=== PATIENT | female | born 1990 | race African-American/Black ===

== ENCOUNTER 2017-03-12 07:49 | Emergency (ER) | payer OTHER ==
[2017-03-12 08:00] VITALS: BP 128/81; PULSE 96; TEMP 98.6; BMI 29.9
--- NOTE | 2017-03-12 08:30 | PDOC ---
History of Present Illness - General Chief Complaint: Chest Pain Stated Complaint: PLEURITIC CHEST PAIN&COUGH Time Seen by Provider: 03/12/17 08:04 History Source: Patient Exam Limitations: No Limitations - History of Present Illness Initial Comments: 03/12/17 08:24 26 yr female with c/o pain to her chest under left breast wraps around to her flanks for 4-5 days comes and goes. Pain worse with movement and deep breath. Pt denies smoking, no control, no travel recently. Pt has no medical history or allergies. Pt has had a dry cough recently. 03/12/17 08:31 Timing/Duration: intermittent Severity: mild Past History - Past Medical History Allergies/Adverse Reactions: Allergies Allergy/AdvReac Type Severity Reaction Status Date / Time No Known Allergies Allergy Verified 03/12/17 07:51 Home Medications: Ambulatory Orders Naproxen [Naprosyn -] 500 mg PO BID #14 tablet 03/12/17 Asthma: Yes - Psycho/Social/Smoking Cessation Hx Suicidal Ideation: No Smoking History: Former smoker Have you smoked in the past 12 months: No Information on smoking cessation initiated: No Review of Systems - Review of Systems Able to Perform ROS?: Yes Is the patient limited Jamaican proficient: No Constitutional: No: Symptoms Reported HEENTM: Yes: Symptoms Reported, Throat Pain Respiratory: Yes: Symptoms reported, See HPI, Cough Cardiac (ROS): Yes: Symptoms Reported, See HPI, Chest Pain *Physical Exam - Vital Signs Last Vital Signs Temp Pulse Resp BP Pulse Ox 98.6 F 96 H 19 128/81 98 03/12/17 07:52 03/12/17 07:52 03/12/17 07:52 03/12/17 07:52 03/12/17 07:52 - Physical Exam General Appearance: Yes: Nourished, Appropriately Dressed HEENT: positive: EOMI, DANIEL, Normal ENT Inspection, TMs Normal, Pharynx Normal Neck: positive: Supple. negative: Tender Respiratory/Chest: positive: Lungs Clear, Normal Breath Sounds. negative: Chest Tender Cardiovascular: positive: Regular Rhythm, Regular Rate Gastrointestinal/Abdominal: positive: Normal Bowel Sounds, Soft Musculoskeletal: positive: Normal Inspection. negative: CVA Tenderness, CVA Tenderness (R), CVA Tenderness (L) Extremity: positive: Normal Capillary Refill, Normal Inspection, Normal Range of Motion Integumentary: positive: Normal Color, Dry, Warm Neurologic: positive: Fully Oriented, Alert, Normal Mood/Affect, Normal Response , Motor Strength 5/5 Heart Score/ECG Review - ECG Intrepretation Rhythm: Regular Rhythm - ECG Impressions Normal ECG: Yes Comment:: 03/12/17 08:34 signed by NSR Medical Decision Making - Medical Decision Making 03/12/17 08:35 cc: chest pain EKG done in triage NSR signed by no risk factors for PE Wells criteria is low risk will r/o UTI, CXR, motrin for pain 03/12/17 10:30 cxr is normal, US abdomen is normal, UA is normal will dc home with strict follow up with PMD take pain medication as prescribed *DC/Admit/Observation/Transfer Diagnosis at time of Disposition: Pleuritic chest pain - Discharge Dispostion Disposition: HOME Condition at time of disposition: Good - Prescriptions Prescriptions: Naproxen [Naprosyn -] 500 mg PO BID #14 tablet - Referrals Referrals: Debbie Khan MD [Primary Care Provider] - - Patient Instructions Additional Instructions: please make appointment to follow up with your doctor within the next 1-4 days take naprosyn as directed for pain drink at least 2 liters of water a day return to ER for any worsening pain - Post Discharge Activity Work/School Note: Back to Work
[2017-03-12] MEDS ORDERED: IBUPROFEN 400 MG TABLET (FP) PO ONE ×2 (08:47→08:49)
[2017-03-12] MEDS ORDERED: MAG HYDROX/AL HYDROX/SIMETH 30 ML UNIT-DOSE CUP PO ONE (09:03)
[2017-03-12] MEDS ORDERED: MAG HYDROX/AL HYDROX/SIMETH 30 ML UNIT-DOSE CUP ONE (09:07)
[2017-03-12 09:14] LABS: URINE APPEARANCE SLCLOUDY; URINE BILIRUBIN NEGATIVE (NEGATIVE); URINE BLOOD NEGATIVE (NEGATIVE); URINE COLOR YELLOW; URINE GLUCOSE (UA) NEGATIVE (NEGATIVE); URINE KETONE NEGATIVE (NEGATIVE); URINE LEUK ESTERASE NEGATIVE (NEGATIVE); URINE NITRITE NEGATIVE (NEGATIVE); URINE PROTEIN NEGATIVE (NEGATIVE); URINE UROBILINOGEN NEGATIVE E.U./dl (0.2-1.0)
--- NOTE | 2017-03-16 12:18 | EKG ---
Test Reason : Blood Pressure : / mmHG Vent. Rate : 079 BPM Atrial Rate : 079 BPM P-R Int : 198 ms QRS Dur : 074 ms QT Int : 352 ms P-R-T Axes : 036 053 032 degrees QTc Int : 403 ms NORMAL SINUS RHYTHM NORMAL ECG WHEN COMPARED WITH ECG OF 06-AUG-2009 13:16, NO SIGNIFICANT CHANGE WAS FOUND Confirmed by ROCÍO BRIAN MD ([id number]) on 03/16/2017 12:18:03 PM Referred By: Confirmed By:ROCÍO BRIAN MD
== END 2017-03-12 10:49 | disposition home or self-care (01) ==
LOC: JERFT 07:49
DX: R07.81 Pleurodynia (principal); J45.909 Unspecified asthma, uncomplicated; Z87.891 Personal history of nicotine dependence
CPT/HCPCS: 71020-TC; 76705-TC; 81003; 84703; 87070; 87086; 87430; 93005; 93010; 99281-25

== ENCOUNTER 2017-08-17 10:04 | Emergency (ER) | payer BC, OTHER ==
[2017-08-17 10:30] VITALS: BP 135/91; PULSE 90; TEMP 98.6; BMI 29.9
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
[2017-08-17] MEDS ORDERED: KETOROLAC TROMETHAMINE 60 MG/2 ML VIAL IM ONE (12:08)
[2017-08-17] MEDS ORDERED: BACITRACIN 15 GM TUBE TOPICAL OINTMENT TP ONE (12:10)
[2017-08-17] MEDS ORDERED: DIPHTH,PERTUSS(ACELL),TET 0.5 ML DISP.SYRIN IM ONE (12:10)
[2017-08-17] MEDS ORDERED: KETOROLAC TROMETHAMINE 60 MG/2 ML VIAL ONE (12:12)
--- NOTE | 2017-08-25 09:49 | EKG ---
Test Reason : Blood Pressure : / mmHG Vent. Rate : 075 BPM Atrial Rate : 075 BPM P-R Int : 214 ms QRS Dur : 080 ms QT Int : 356 ms P-R-T Axes : 030 063 033 degrees QTc Int : 397 ms SINUS RHYTHM WITH 1ST DEGREE A-V BLOCK OTHERWISE NORMAL ECG WHEN COMPARED WITH ECG OF 12-MAR-2017 08:05, NO SIGNIFICANT CHANGE WAS FOUND Confirmed by ROCÍO BRIAN MD ([id number]) on 08/25/2017 9:49:37 AM Referred By: Confirmed By:ROCÍO BRIAN MD
== END 2017-08-17 14:42 | disposition home or self-care (01) ==
LOC: JERFT 10:04
PROC: 3E0234Z Introduction of Serum, Toxoid and Vaccine into Muscle, Percutaneous Approach (ICD-10-PCS; principal; 2017-08-17)
PROC: 3E0233Z Introduction of Anti-inflammatory into Muscle, Percutaneous Approach (ICD-10-PCS; 2017-08-17)
DX: S00.83XA Contusion of other part of head, initial encounter (principal); S00.81XA Abrasion of other part of head, initial encounter; S39.012A Strain of muscle, fascia and tendon of lower back, initial encounter; Y08.89XA Assault by other specified means, initial encounter; Y93.89 Activity, other specified; Y92.59 Other trade areas as the place of occurrence of the external cause; Y99.8 Other external cause status; Y07.9 Unspecified perpetrator of maltreatment and neglect
CPT/HCPCS: 70450-TC; 71020-TC; 72050-TC; 72100-TC; 84703; 90715; 93005; 93010; 99281-25

== ENCOUNTER 2018-10-19 17:45 | Emergency (ER) | payer OTHER, BC ==
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
[2018-10-19 18:12] VITALS: BP 154/86; PULSE 78; TEMP 98.2; BMI 31.6
[2018-10-19 18:30] LABS: BASO % 0.8 % (0-2.0); EOS % 0.8 % (0-4.5); HEMATOCRIT 39.8 % (32.4-45.2); HEMOGLOBIN 14.1 GM/dL (10.7-15.3); LYMPH % 42.7 % (8-40); MCHC 35.5 g/dl (32.0-36.0); MEAN CELL VOLUME 81.7 fl (80-96); MEAN PLT VOLUME 7.6 fl (7.5-11.1); MONO % 10.5 % (3.8-10.2); NEUT % 45.2 % (42.8-82.8); PLATELET COUNT 368 K/MM3 (134-434); RBC 4.87 M/mm3 (3.60-5.2); RDW 15.2 % (11.6-15.6)
[2018-10-19 19:13] LABS: ALK PHOS 50 U/L (45-117); ANION GAP 9 MMOL/L (8-16); BILIRUBIN,TOTAL 0.1 mg/dL (0.2-1); BLOOD UREA NITROGEN 14 mg/dL (7-18); CALCIUM 8.6 mg/dL (8.5-10.1); CHLORIDE 105 mmol/L (98-107); CO2 24 mmol/L (21-32); CREATININE 0.8 mg/dL (0.55-1.3); GLUCOSE,RANDOM 80 mg/dL (74-106); MAGNESIUM 2.2 mg/dL (1.8-2.4); POTASSIUM 4.2 mmol/L (3.5-5.1); SGOT/AST 14 U/L (15-37); SGPT/ALT 21 U/L (13-61); SODIUM 137 mmol/L (136-145); TOT PROT 7.8 g/dl (6.4-8.2)
[2018-10-19 20:22] LABS: HCG,QUALITATIVE URINE Negative
[2018-10-19 20:29] LABS: URINE APPEARANCE CLEAR; URINE BILIRUBIN NEGATIVE (<2.0 mg/dL); URINE COLOR STRAW; URINE GLUCOSE (UA) NEGATIVE (NEGATIVE); URINE KETONE NEGATIVE (NEGATIVE); URINE LEUK ESTERASE NEGATIVE (NEGATIVE); URINE NITRITE NEGATIVE (NEGATIVE); URINE PROTEIN NEGATIVE (NEGATIVE); URINE UROBILINOGEN NEGATIVE mg/dL (0.2-1.0)
[2018-10-19] MEDS ORDERED: SODIUM CHLORIDE 0.9% 1000 ML INFUS.BAG IV ONE (20:29)
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
--- NOTE | 2018-10-20 11:45 | EKG ---
Test Reason : Blood Pressure : / mmHG Vent. Rate : 074 BPM Atrial Rate : 074 BPM P-R Int : 196 ms QRS Dur : 080 ms QT Int : 362 ms P-R-T Axes : 019 046 027 degrees QTc Int : 401 ms NORMAL SINUS RHYTHM NORMAL ECG WHEN COMPARED WITH ECG OF 17-AUG-2017 11:34, NO SIGNIFICANT CHANGE WAS FOUND Confirmed by DIONICIO ZHENG MD ([id number]) on 10/20/2018 11:45:28 AM Referred By: Confirmed By:DIONICIO ZHENG MD
== END 2018-10-19 23:26 | disposition home or self-care (01) ==
LOC: JER 17:45
DX: R55 Syncope and collapse (principal); Z98.890 Other specified postprocedural states
CPT/HCPCS: 36415; 70450-TC; 80053; 81003; 82550; 83735; 84484; 84703; 85025; 93005; 93010; 99283-25; J7030

== ENCOUNTER 2023-07-16 19:05 | Emergency (ER) | payer BC, OTHER ==
[2023-07-16 19:25] VITALS: BP 147/74; PULSE 76; RESP 16; TEMP 98.2; BMI 29.6
[2023-07-16] MEDS ORDERED: ACETAMINOPHEN 500 MG TABLET (FP) PO ONE (20:06)
[2023-07-16] MEDS ORDERED: IBUPROFEN 600 MG TABLET (FP) PO ONE ×2 (20:06→20:11)
[2023-07-16] MEDS ORDERED: ACETAMINOPHEN 500 MG TABLET (FP) ONE (20:11)
[2023-07-16] MEDS ORDERED: KETOROLAC TROMETHAMINE 30 MG/1 ML VIAL IM ONE (20:46)
[2023-07-16] MEDS ORDERED: KETOROLAC TROMETHAMINE 60 MG/2 ML VIAL ONE (20:51)
== END 2023-07-16 21:02 | disposition home or self-care (01) ==
LOC: JERFT 19:05 → JER 19:05 → JERFT 21:02
PROC: 3E0233Z Introduction of Anti-inflammatory into Muscle, Percutaneous Approach (ICD-10-PCS; principal; 2023-07-16)
DX: R51.9 Headache, unspecified (principal); M54.9 Dorsalgia, unspecified; R11.0 Nausea; V49.50XA Passenger injured in collision with unspecified motor vehicles in traffic accident, initial encounter; Y93.I9 Activity, other involving external motion; Y92.481 Parking lot as the place of occurrence of the external cause
CPT/HCPCS: 84703; 99284-25